=== PATIENT | female | born 1940 | race Caucasian/White ===

== ENCOUNTER 2020-12-15 13:13 | Observation (INO) ==
[2020-12-15] MEDS ORDERED: SODIUM CHLORIDE 0.9% 1,000 ML IV STA (13:50)
[2020-12-15 14:21] LABS: Basophils % 0.7 % (0.0-0.8); Eosinophils # 0.2 10*3/uL (0.0-0.87); Eosinophils % 5.5 % (0.00-10.9); Hematocrit 35.2 VOL% (35.7-47.0); Hemoglobin 11.9 GM/DL (12.0-16.0); Lymphocytes # 1.4 10*3/uL (1.4-4.0); Lymphocytes % 34.1 % (21.3-54.2); Mean Corpuscular HGB Conc 33.8 GM/DL (32-36); Monocytes % 9.5 % (1.7-12.7); Neutrophils % 50.2 % (38.7-73.9); Platelet Count 207 T/CUMM (130-400); Red Blood Count 3.87 MC/CUMM (3.8-5.5); Red Cell Distribution Width 12.7 % (9.3-17.3); White Blood Count 4.2 T/CUMM (4-12)
[2020-12-15 14:30] LABS: Alanine Aminotransferase 16 U/L (13-56); Alkaline Phosphatase 77 U/L (45-117); Aspartate Amino Transferase 23 U/L (0-37); Blood Urea Nitrogen 11 MG/DL (7-18); Calcium 9.3 MG/DL (8.5-10.1); Carbon Dioxide 27 MMOL/L (21-32); Estimated Glom Filtration Rate 40 ML/MIN; Glucose 96 MG/DL (74-106); Osmolality,Calculated 275.5 MOS/KG (273-304); Potassium 3.8 MMOL/L (3.5-5.1); Sodium 139 MMOL/L (136-145); Total Protein 7.4 G/DL (6.4-8.2); Troponin I < 0.015 NG/ML (0.00-0.045)
[2020-12-15 14:36] LABS: PT Patient Result 11.1 SECS (9.8-11.9); Partial Thromboplastin Time 25.4 SECS (23.9-33.8)
[2020-12-15] MEDS ORDERED: GLUCAGON 1 MG VIAL IM PRN (17:29)
[2020-12-15] MEDS ORDERED: DEXTROSE 50% 25 GM/50 ML VIAL IV PRN (17:29)
[2020-12-15] MEDS ORDERED: ONDANSETRON 4 MG/2 ML VIAL IV PRN (17:29)
[2020-12-15] MEDS ORDERED: ACETAMINOPHEN 325 MG TABLET PO PRN (17:29)
[2020-12-15] MEDS ORDERED: NITROGLYCERIN SL 0.4 MG TABLET SL PRN (17:33)
[2020-12-15 18:02] LABS: Risk Ratio 2.61; Thyroid Stimulating Hormone 0.119 uIU/ml (0.358-3.74); VLDL CHOLESTEROL 18.6 MG/DL
[2020-12-15] MEDS ORDERED: GABAPENTIN 600 MG TABLET PO SCH (21:00)
[2020-12-15] MEDS ORDERED: ENOXAPARIN 40 MG/0.4 ML SYRINGE SUBCUT SCH (21:00)
[2020-12-15] MEDS: carvediloL 3.125 MG TABLET PO SCH ×2 (21:46→22:18)
[2020-12-16 05:36] LABS: Basophils % 0.5 % (0.0-0.8); Eosinophils # 0.3 10*3/uL (0.0-0.87); Eosinophils % 5.9 % (0.00-10.9); Hematocrit 31.6 VOL% (35.7-47.0); Hemoglobin 10.6 GM/DL (12.0-16.0); Immature Granulocytes % 0.2 %; Immature Granulocytes Absolute 0.01 #; Lymphocytes # 1.6 10*3/uL (1.4-4.0); Lymphocytes % 36.2 % (21.3-54.2); Mean Corpuscular HGB Conc 33.5 GM/DL (32-36); Mean Corpuscular Volume 90.8 FL (87-102); Mean Platelet Volume 11.3 FL (9.6-12.0); Monocytes % 10.9 % (1.7-12.7); Neutrophils % 46.3 % (38.7-73.9); Platelet Count 182 T/CUMM (130-400); Red Blood Count 3.48 MC/CUMM (3.8-5.5); Red Cell Distribution Width 12.5 % (9.3-17.3); White Blood Count 4.4 T/CUMM (4-12)
[2020-12-16 06:01] LABS: Calcium 9.1 MG/DL (8.5-10.1); Osmolality,Calculated 277.4 MOS/KG (273-304); Potassium 3.6 MMOL/L (3.5-5.1)
[2020-12-16] MEDS ORDERED: LEVOTHYROXINE 100 MCG TABLET PO SCH (06:30)
[2020-12-16 08:14] VITALS: BP 117/65
[2020-12-16] MEDS ORDERED: lisinopriL 5 MG TABLET PO SCH (09:00)
[2020-12-16] MEDS: ASPIRIN CHEW 81 MG TABLET PO SCH ×2 (10:06→10:07)
[2020-12-16] MEDS: PANTOPRAZOLE 40 MG TABLET PO SCH ×2 (10:06→10:07)
[2020-12-16] MEDS: carvediloL 3.125 MG TABLET PO SCH (10:08)
== END 2020-12-16 11:41 | disposition home or self-care (01) ==
LOC: N.EDINP 13:13 → N.ED 13:13 → N.TELES 18:54
PROVIDERS: ADMIT Internal Medicine Geriatric Medicine; ATTEND Internal Medicine Geriatric Medicine